=== PATIENT | male | born 1970 | race African-American/Black ===

== ENCOUNTER 2017-02-12 00:47 | Emergency (ER) | payer MEDICAID ==
[~2017-02-12] VITALS: Ht 172.7 cm; Wt 77.0 kg
[~2017-02-12 00:47] MED LIST: ARIP10TA14 PO; QUET25TA PO; benadryl
[2017-02-12 00:49] VITALS: BP 150/80
== END 2017-02-12 01:51 | disposition home or self-care (01) ==
LOC: ER 00:50
DX: R04.0 Epistaxis (principal); Z79.899 Other long term (current) drug therapy
CPT/HCPCS: 99283

== ENCOUNTER 2017-11-09 13:10 | Emergency (ER) | payer MEDICAID ==
[~2017-11-09 13:10] MED LIST changes: +ABIL10 PO; -ARIP10TA14 PO
== END 2017-11-09 13:58 | disposition left against medical advice (07) ==
LOC: ER 13:17
DX: Z53.21 Procedure and treatment not carried out due to patient leaving prior to being seen by health care provider (principal)

== ENCOUNTER 2019-10-29 09:35 | Emergency (ER) | payer MEDICAID ==
[~2019-10-29] VITALS: Ht 172.7 cm; Wt 82.0 kg
[2019-10-29 10:53] VITALS: BP 150/90
== END 2019-10-29 11:54 | disposition left against medical advice (07) ==
LOC: ER 09:51
DX: M79.605 Pain in left leg (principal); M79.604 Pain in right leg; Z53.21 Procedure and treatment not carried out due to patient leaving prior to being seen by health care provider

== ENCOUNTER 2019-11-19 19:59 | Emergency (ER) | payer MEDICAID ==
[~2019-11-19] VITALS: Ht 185.4 cm; Wt 68.0 kg
[2019-11-19] MEDS ORDERED: IBUPROFEN 600MG TABLET PO ONE (23:30)
[2019-11-20 00:12] LABS: BASOPHILS % 1.1 % (0.0-2.0); EOSINOPHILS % 0.3 % (0.0-5.0); HEMATOCRIT. 38.3 % (42.0-52.0); HEMOGLOBIN. 12.8 g/dL (14.0-18.0); MEAN CORPUSCULAR HEMOGLOBIN 30.9 pg (28.0-32.0); MEAN CORPUSCULAR VOLUME 92.6 fL (80.0-94.0); MEAN PLATELET VOLUME 8.1 fl (7.4-10.4); MONOCYTES % 7.8 % (2.0-8.0); NEUTROPHILS % 37.8 % (40.0-76.0); PLATELET 297 x1000/uL (130-400); RED BLOOD CELL COUNT 4.14 mill/uL (4.7-6.1); RED CELL DISTRIBUTION WIDTH 14.9 % (11.6-14.6)
[2019-11-20 00:14] LABS: CHLORIDE 108 mEq/L (98-107)
[2019-11-20 01:21] VITALS: BP 119/84
== END 2019-11-20 01:23 | disposition home or self-care (01) ==
LOC: ER 19:59
DX: J06.9 Acute upper respiratory infection, unspecified (principal); R00.0 Tachycardia, unspecified; I10 Essential (primary) hypertension; J44.9 Chronic obstructive pulmonary disease, unspecified; Z86.73 Personal history of transient ischemic attack (TIA), and cerebral infarction without residual deficits
CPT/HCPCS: 36415; 71045; 80053; 83880; 84484; 85025; 93005; 99284

== ENCOUNTER 2019-12-17 12:24 | Emergency (ER) | payer MEDICAID ==
[~2019-12-17] VITALS: Ht 172.7 cm; Wt 80.0 kg
[2019-12-17 12:28] VITALS: BP 157/80
== END 2019-12-17 17:05 | disposition left against medical advice (07) ==
LOC: ER 12:24
DX: J11.1 Influenza due to unidentified influenza virus with other respiratory manifestations (principal); Z53.21 Procedure and treatment not carried out due to patient leaving prior to being seen by health care provider

== ENCOUNTER 2019-12-28 13:58 | Emergency (ER) | payer MEDICAID ==
[~2019-12-28] VITALS: Ht 180.3 cm; Wt 63.0 kg
[2019-12-28] MEDS ORDERED: KETOROLAC 30MG/ML VIAL IM ONE (15:30)
[2019-12-28 16:07] LABS: CLARITY URINE CLEAR (CLEAR); COLOR URINE YELLOW (YELLOW); KETONES URINE NEGATIVE (NEGATIVE); LEUKOCYTE ESTERASE URINE NEGATIVE (NEGATIVE); NITRITE URINE NEGATIVE (NEGATIVE); OCCULT BLOOD URINE NEGATIVE (NEGATIVE); PH URINE 6.5 (4.5-8.0); PROTEIN URINE NEGATIVE (NEGATIVE); SPECIFIC GRAVITY URINE 1.013 (1.005-1.030)
[2019-12-28 16:07] LABS: HEMATOCRIT. 38.7 % (42.0-52.0); HEMOGLOBIN. 12.9 g/dL (14.0-18.0); MEAN CORPUSCULAR HEMOGLOBIN 30.9 pg (28.0-32.0); MEAN CORPUSCULAR VOLUME 92.8 fL (80.0-94.0); MEAN PLATELET VOLUME 8.4 fl (7.4-10.4); PLATELET 229 x1000/uL (130-400); RED BLOOD CELL COUNT 4.17 mill/uL (4.7-6.1); RED CELL DISTRIBUTION WIDTH 14.3 % (11.6-14.6)
[2019-12-28 16:09] LABS: CHLORIDE 98 mEq/L (98-107)
[2019-12-28 16:27] LABS: PLATELET ESTIMATE NORMAL
[2019-12-28] MEDS ORDERED: POTASSIUM CHLORIDE 20MEQ TABLET SR PO ONE (16:30)
[2019-12-28 17:00] VITALS: BP 148/96
== END 2019-12-28 17:01 | disposition home or self-care (01) ==
LOC: ER 14:02
DX: R68.2 Dry mouth, unspecified (principal); M62.838 Other muscle spasm
CPT/HCPCS: 36415; 80048; 81003; 85025; 96372; 99283; J1885; Z7610

== ENCOUNTER 2020-01-09 01:38 | Emergency (ER) | payer MEDICAID ==
[~2020-01-09] VITALS: Ht 175.3 cm; Wt 70.0 kg
[2020-01-09] MEDS ORDERED: ACETAMINOPHEN 325MG TABLET PO ONE (05:00)
[2020-01-09 05:18] LABS: BASOPHILS % 1.7 % (0.0-2.0); EOSINOPHILS % 0.1 % (0.0-5.0); HEMATOCRIT. 35.5 % (42.0-52.0); HEMOGLOBIN. 12.2 g/dL (14.0-18.0); LYMPHOCYTES % 38.9 % (20.0-50.0); MEAN CORPUSCULAR HEMOGLOBIN 32.2 pg (28.0-32.0); MEAN CORPUSCULAR VOLUME 93.6 fL (80.0-94.0); MEAN PLATELET VOLUME 7.1 fl (7.4-10.4); MONOCYTES % 12.2 % (2.0-8.0); NEUTROPHILS % 47.1 % (40.0-76.0); PLATELET 496 x1000/uL (130-400); RED CELL DISTRIBUTION WIDTH 15.3 % (11.6-14.6)
[2020-01-09 05:22] LABS: CHLORIDE 104 mEq/L (98-107)
[2020-01-09 05:25] LABS: CLARITY URINE CLEAR (CLEAR); COLOR URINE YELLOW (YELLOW); KETONES URINE NEGATIVE (NEGATIVE); LEUKOCYTE ESTERASE URINE NEGATIVE (NEGATIVE); NITRITE URINE NEGATIVE (NEGATIVE); OCCULT BLOOD URINE NEGATIVE (NEGATIVE); PROTEIN URINE NEGATIVE (NEGATIVE); SPECIFIC GRAVITY URINE 1.018 (1.005-1.030); UROBILINOGEN URINE 0.2 E.U./dL (0.2-1.0)
[2020-01-09 05:29] LABS: ETHANOL BLOOD 188 mg/dL
[2020-01-09 05:44] LABS: CREATINE KINASE 333 IU/L (39-308)
[2020-01-09] MEDS ORDERED: SODIUM CHLORIDE 0.9% 1,000 ML IV ONE (05:46)
[2020-01-09 05:54] LABS: *AMPHETAMINES SCREEN URINE PRESUMTIVE POSITIVE (NEGATIVE); *BARBITURATES SCREEN URINE NEGATIVE (NEGATIVE); *BENZODIAZEPINES SCREEN URINE NEGATIVE (NEGATIVE); *COCAINE SCREEN URINE PRESUMTIVE POSITIVE (NEGATIVE); METHADONE URINE SCREEN NEGATIVE (NEGATIVE); OPIATES URINE SCREEN NEGATIVE (NEGATIVE)
[2020-01-09 05:55] LABS: CANNABINOID URINE SCREEN PRESUMTIVE POSITIVE (NEGATIVE); PHENCYCLIDINE URINE SCREEN PRESUMTIVE POSITIVE (NEGATIVE)
[2020-01-09] MEDS ORDERED: HALOPERIDOL LACTATE 5MG/ML VIAL IM ONE (06:15)
[2020-01-09 10:09] VITALS: BP 134/78
== END 2020-01-09 11:54 | disposition home or self-care (01) ==
LOC: ER 01:55
DX: F16.151 Hallucinogen abuse with hallucinogen-induced psychotic disorder with hallucinations (principal); M79.10 Myalgia, unspecified site; F20.9 Schizophrenia, unspecified; Z79.899 Other long term (current) drug therapy
CPT/HCPCS: 36415; 80053; 80305; 80320; 81003; 82550; 85025; 96372; 99283; J1630; J7030; G0480

== ENCOUNTER 2021-02-02 09:14 | Emergency (ER) | payer MEDICAID ==
[~2021-02-02] VITALS: Ht 182.9 cm; Wt 75.0 kg
[2021-02-02] MEDS ORDERED: ACETAMINOPHEN 325MG TABLET PO ONE (10:00)
[2021-02-02] MEDS ORDERED: CEPH500T MT (10:00)
[2021-02-02 10:21] VITALS: BP 120/70
== END 2021-02-02 10:22 | disposition home or self-care (01) ==
LOC: ER 09:28
DX: L03.116 Cellulitis of left lower limb (principal); F31.9 Bipolar disorder, unspecified; I10 Essential (primary) hypertension; F20.9 Schizophrenia, unspecified; F17.290 Nicotine dependence, other tobacco product, uncomplicated; F14.10 Cocaine abuse, uncomplicated; F12.10 Cannabis abuse, uncomplicated; Z79.899 Other long term (current) drug therapy
CPT/HCPCS: 99283

== ENCOUNTER 2021-06-28 07:06 | Emergency (ER) | payer MEDICAID ==
[~2021-06-28] VITALS: Ht 180.3 cm; Wt 75.0 kg
[~2021-06-28 07:06] MED LIST changes: +CEPH500T MT
[2021-06-28] MEDS ORDERED: ONDANSETRON HCL 4MG/2ML INJ IV STA (07:44)
[2021-06-28] MEDS ORDERED: SODIUM CHLORIDE 0.9% 1,000 ML IV ONE (07:45)
[2021-06-28 08:39] LABS: BASOPHILS % 0.8 % (0.0-2.0); CHLORIDE 104 mEq/L (98-107); EOSINOPHILS % 0.1 % (0.0-5.0); HEMATOCRIT. 40.4 % (42.0-52.0); HEMOGLOBIN. 13.2 g/dL (14.0-18.0); LYMPHOCYTES % 18.5 % (20.0-50.0); MEAN CORPUSCULAR HEMOGLOBIN 28.6 pg (28.0-32.0); MEAN CORPUSCULAR VOLUME 87.3 fL (80.0-94.0); MEAN PLATELET VOLUME 7.8 fl (7.4-10.4); MONOCYTES % 8.8 % (2.0-8.0); NEUTROPHILS % 71.8 % (40.0-76.0); PLATELET 375 x1000/uL (130-400); RED BLOOD CELL COUNT 4.63 mill/uL (4.7-6.1); RED CELL DISTRIBUTION WIDTH 15.4 % (11.6-14.6)
[2021-06-28] MEDS ORDERED: VISCOUS LIDOCAINE 2% 15 ML UDC PO STA (09:51)
[2021-06-28] MEDS ORDERED: FAMOTIDINE 20MG/2ML VIAL IV STA (09:51)
[2021-06-28] MEDS ORDERED: MAGNESIUM/ALUMINUM HYDROXIDE/SIMETHICONE 30ML UDC PO STA (09:51)
[2021-06-28 10:00] LABS: CLARITY URINE CLEAR (CLEAR); COLOR URINE YELLOW (YELLOW); KETONES URINE 2+ (NEGATIVE); LEUKOCYTE ESTERASE URINE TRACE (NEGATIVE); NITRITE URINE NEGATIVE (NEGATIVE); OCCULT BLOOD URINE NEGATIVE (NEGATIVE); PH URINE 6.5 (4.5-8.0); PROTEIN URINE TRACE (NEGATIVE); SPECIFIC GRAVITY URINE 1.023 (1.005-1.030)
[2021-06-28] MEDS ORDERED: ONDA4TAB5 MT (10:41)
[2021-06-28] MEDS ORDERED: FAMO-135 MT (10:41)
[2021-06-28 10:50] VITALS: BP 146/65
== END 2021-06-28 11:04 | disposition home or self-care (01) ==
LOC: ER 07:07
DX: R10.9 Unspecified abdominal pain (principal); R53.1 Weakness; F31.9 Bipolar disorder, unspecified; I10 Essential (primary) hypertension; F20.9 Schizophrenia, unspecified; Z20.822 Contact with and (suspected) exposure to COVID-19
CPT/HCPCS: 36415; 71045; 80053; 81003; 83690; 83880; 84484; 85025; 93005; 96361; 96374; 96375; 99285; C9803; J2405; J3490; J7030; U0003; U0005

== ENCOUNTER 2023-05-13 12:11 | Emergency (ER) | payer MEDICAID ==
[~2023-05-13] VITALS: Ht 180.3 cm; Wt 80.0 kg
[~2023-05-13 12:11] MED LIST changes: +AMLO10TA80 MT; -CEPH500T MT; +FAMO-135 MT; +ONDA4TAB5 MT
[2023-05-13 12:17] VITALS: O2SAT 97
[2023-05-13] MEDS ORDERED: ACETAMINOPHEN 325MG TABLET PO ONE (12:30)
[2023-05-13 16:24] VITALS: BP 114/75; PULSE 97; RESP 16; TEMP 97.4
== END 2023-05-13 16:28 | disposition home or self-care (01) ==
LOC: ER 12:36
DX: S92.502A Displaced unspecified fracture of left lesser toe(s), initial encounter for closed fracture (principal); F31.9 Bipolar disorder, unspecified; G89.11 Acute pain due to trauma; I10 Essential (primary) hypertension; F20.9 Schizophrenia, unspecified; F12.10 Cannabis abuse, uncomplicated; X58.XXXA Exposure to other specified factors, initial encounter; Y93.89 Activity, other specified; Y92.89 Other specified places as the place of occurrence of the external cause; Y99.8 Other external cause status
CPT/HCPCS: 73630; 29515; 99283; Z7610 ×2

== ENCOUNTER 2023-05-15 12:13 | Emergency (ER) | payer MEDICAID ==
[~2023-05-15] VITALS: Ht 180.3 cm; Wt 72.0 kg
[2023-05-15 12:31] VITALS: BP 121/74; PULSE 108; RESP 20; TEMP 97.9; O2SAT 99
== END 2023-05-15 14:25 | disposition home or self-care (01) ==
LOC: ER 12:13
DX: S92.902A Unspecified fracture of left foot, initial encounter for closed fracture (principal); F31.9 Bipolar disorder, unspecified; I10 Essential (primary) hypertension; F20.9 Schizophrenia, unspecified; F12.10 Cannabis abuse, uncomplicated; X58.XXXA Exposure to other specified factors, initial encounter; Y93.89 Activity, other specified; Y92.89 Other specified places as the place of occurrence of the external cause; Y99.8 Other external cause status
CPT/HCPCS: 29515; 99283